=== PATIENT | female | born 1985 | race Caucasian/White ===

== ENCOUNTER 2020-07-14 23:04 | Outpatient (CLI) | payer BC ==
[~2020-07-14] VITALS: Ht 175.3 cm; Wt 97.3 kg
[~2020-07-14 23:04] MED LIST: AMBIEN 10MG10 MG PO; AMOXICILLIN 8751 TAB PO; ANTI-DIARRHEAL2 MG PO; CIPRO 500MG TA500 MG PO; DEPO-PROVER150 MG/M1 IM; FLAGYL500 MG PO; KLONOPIN 1MG1 MG PO; LAMICTAL 100MG100 MG PO; MULTIPLE VITAMI1 CAP PO; OMNICEF 300MG300 MG PO; TEGRETOL 2200 MG/TAB PO; TRAZODO50 MG PO
[2020-07-14 23:20] VITALS: BP 137/97; PULSE 107; TEMP 98.7
--- NOTE | 2020-07-14 23:20 | NUR ---
2320 G1L0 24.4 WEEK GEST TO LR5 WITH C/O MIGRAINE SINCE 1400 TODAY WITH NO IMPROVEMENT WITH TYLENOL, LAST TAKEN AT 1700 AND HAS BEEN TAKING B/P AT HOME SINCE 16 WEEKS AND B/P WERE CONSISTANTLY GETTING HIGHER THRU THE EVENING. STATES HAS LONG HX OF MIGRAINES BUT HAVE BEEN BETTER WITH . RATES PAIN 7/10 AT THIS TIME. EFM ON AND SERIAL B/P BEGAN. ADM ASSESSMENT DONE. STATES HAS BEEN LIGHTHEADED OFF AND ON TODAY.
[2020-07-14] MEDS ORDERED: PRENATAL TABLET PO (23:23)
[2020-07-14 23:30] VITALS: BP 128/73; PULSE 94
[2020-07-14 23:31] LABS: COLLECTION METHOD CLEAN CATCH
[2020-07-14 23:33] LABS: BASO % 0.1 % (0.0-2.0); EOS # 0.1 (0.0-0.7); EOS % 0.8 % (0-4.0); GRAN # 5.4 (1.4-6.5); GRAN % 71.6 % (42.2-75.2); LYMPH # 1.4 (1.2-3.4); LYMPH % 18.8 % (20.0-51.0); MEAN CELL VOLUME 96 fl (80.0-100.0); MEAN CORPUSCULAR HEMOGLOBIN 33 pg (27.0-31.0); MEAN CORPUSCULAR HGB CONC 35 g/dl (33.0-37.0); MEAN PLATELET VOLUME 9.6 fl (7.4-10.4); MONO # 0.6 (0.1-0.6); MONO % 8.4 % (1.7-9.3); PLATELET COUNT 234 K/mm3 (130-400); RED BLOOD COUNT 3.61 M/mm3 (4.10-5.30); REDCELL DISTRIBUTION WIDTH-CV 11.7 % (11.5-14.5)
[2020-07-14 23:34] LABS: HEMATOCRIT 34.6 % (37.0-47.0)
[2020-07-14 23:37] LABS: PH 7 (5-8); SQUAMOUS EPITHELIAL None Seen /hpf; URINE APPEARANCE Clear; URINE BACTERIA Rare /hpf; URINE BILIRUBIN Negative (NEGATIVE); URINE BLOOD Negative (NEGATIVE); URINE COLOR Straw; URINE GLUCOSE Negative (NEGATIVE); URINE KETONE Negative (NEGATIVE); URINE LEUKOCYTE ESTERASE Negative (NEGATIVE); URINE NITRATE Negative (NEGATIVE); URINE PROTEIN(semi-quant) Negative (NEGATIVE); URINE RBC 0-2 /hpf; URINE UROBILINOGEN Negative (NEGATIVE); URINE WBC 0-2 /hpf
[2020-07-14 23:40] VITALS: BP 130/89; PULSE 93
[2020-07-14 23:43] LABS: ALANINE AMINOTRANSFERASE 23 U/L (4-34); ALBUMIN 3.6 gm/dL (3.5-5.0); ALKALINE PHOSPHATASE 46 U/L (50-136); ANION GAP 6 mmol/L (7-16); AST,SGOT 18 U/L (15-37); BILIRUBIN,TOTAL < 0.1 mg/dL (0.0-1.0); BLOOD UREA NITROGEN 8 mg/dL (7-17); CARBON DIOXIDE 22 mmol/L (22-30); CHLORIDE 106 mmol/L (98-107); CREATININE, serum 0.49 (0.52-1.25); GLUCOSE 126 mg/dL (74-106); POTASSIUM 3.5 mmol/L (3.4-5.0); SODIUM 134 mmol/L (137-145); TOTAL PROTEIN 6.8 gm/dL (6.4-8.2)
[2020-07-14 23:55] VITALS: BP 132/74; PULSE 89
--- NOTE | 2020-07-14 23:55 | NUR ---
37[address] DR LE CALLED WITH LAB RESULTS AND UPDATE. NEW ORDERS RECEIVED 0010 TYLENOL 1000MG AND VISTARIL 50MGPO GIVEN PER DRS ORDER. RESTING BUT STILL C/O MIGRAINE.
[2020-07-15 00:30] VITALS: BP 122/58; PULSE 78
--- NOTE | 2020-07-15 00:30 | NUR ---
0030 STATES HEADACHE IS STILL THERE BUT IS FEELING MORE RELAXED. EFM OFF AND DISMISSAL INSTRUCTIONS GIVEN. 0045 HOME WITH INSTRUCTIONS.
== END 2020-07-15 00:45 | disposition home or self-care (01) ==
LOC: LDRO 23:04 → LDR 23:11 → LDRO 07-15 00:45
PROVIDERS: Student in an Organized Health Care Education/Training Program
DX: O13.2 Gestational [pregnancy-induced] hypertension without significant proteinuria, second trimester (principal); O99.891 Other specified diseases and conditions complicating pregnancy; R51.9 Headache, unspecified; Z3A.24 24 weeks gestation of pregnancy
CPT/HCPCS: OP

== ENCOUNTER 2021-09-02 19:21 | Emergency (ER) | payer BC ==
[~2021-09-02] VITALS: Ht 175.3 cm; Wt 90.0 kg
[~2021-09-02 19:21] MED LIST changes: +PRENATAL TABLET PO
[2021-09-02 19:32] VITALS: TEMP 98.1
[2021-09-02 20:53] LABS: BASO % 0.2 % (0.0-2.0); EOS # 0.1 K/mm3 (0.0-0.7); EOS % 0.6 % (0.0-4.0); GRAN # 7.4 K/mm3 (1.4-6.5); GRAN % 73.8 % (42.2-75.2); HEMATOCRIT 41.2 % (37.0-47.0); HEMOGLOBIN 14.2 g/dl (12.5-16.0); LYMPH # 1.8 K/mm3 (1.2-3.4); LYMPH % 18.4 % (20.0-51.0); MEAN CELL VOLUME 94 fl (80.0-100.0); MEAN CORPUSCULAR HEMOGLOBIN 32 pg (27-31); MEAN CORPUSCULAR HGB CONC 35 g/dl (33.0-37.0); MEAN PLATELET VOLUME 9.9 fl (7.4-10.4); MONO # 0.7 K/mm3 (0.1-0.6); MONO % 6.8 % (1.7-9.3); PLATELET COUNT 377 K/mm3 (130-400); RED BLOOD COUNT 4.38 M/mm3 (4.10-5.30); REDCELL DISTRIBUTION WIDTH-CV 11.9 % (11.5-14.5)
[2021-09-02 21:05] LABS: ALBUMIN 4.5 gm/dL (3.5-5.0); BILIRUBIN,TOTAL 0.3 mg/dL (0.2-1.2); C-REACTIVE PROTEIN 0.25 mg/dL (0.00-0.50); CALCIUM 9.5 mg/dL (8.4-10.2); CREATININE, serum 0.83 mg/dL (0.57-1.11); MAGNESIUM 1.8 mg/dL (1.6-2.6); POTASSIUM 3.8 mmol/L (3.5-4.5); TOTAL PROTEIN 7.9 gm/dL (6.2-8.1)
[2021-09-02 21:57] LABS: COLLECTION METHOD CLEAN CATCH
[2021-09-02 22:03] LABS: MUCOUS Present (NOT PRESENT); PH 5 (5-8); SQUAMOUS EPITHELIAL None Seen /hpf (0-10); URINE APPEARANCE Hazy (CLEAR/HAZY); URINE BACTERIA None Seen /hpf (NONE SEEN); URINE BILIRUBIN Negative (NEGATIVE); URINE BLOOD Negative (NEGATIVE); URINE COLOR Yellow (YELLOW); URINE GLUCOSE Negative (NEGATIVE); URINE KETONE 1+ (NEGATIVE); URINE LEUKOCYTE ESTERASE Negative (NEGATIVE); URINE NITRATE Negative (NEGATIVE); URINE PROTEIN(semi-quant) Negative (NEGATIVE); URINE RBC 0-2 /hpf (0-2); URINE UROBILINOGEN Negative (NEGATIVE)
[2021-09-03 01:02] VITALS: BP 134/95; PULSE 88
== END 2021-09-03 01:02 | disposition home or self-care (01) ==
LOC: COL.ER 19:21
PROVIDERS: Emergency Medicine
DX: R10.11 Right upper quadrant pain (principal); Z28.311 Partially vaccinated for COVID-19
CPT/HCPCS: J1885; J3010; J7030; Q9967